=== PATIENT | male | born 1950 | race African-American/Black ===

== ENCOUNTER 2019-06-05 01:09 | Emergency (ER) | payer BC, SELFPAY ==
[2019-06-05 01:54] LABS: #Monocytes 0.8 thou/uL (0.11-0.59); #Neutrophils 10.4 thou/uL (1.40-6.50); %Basophils 0.3 % (0.0-1.0); %Eosinophils 0.2 % (0.0-10.0); %Lymphocytes 7.8 % (21.0-51.0); %Monocytes 6.5 % (0.0-10.0); %Neutrophils 85.1 % (42.0-75.0); Mean Corpuscular HGB CONC 32.5 g/dL (32.0-36.0); Mean Corpuscular Hemoglobin 28.5 pg (27.0-31.0); Mean Corpuscular Volume 87.5 fL (78.0-98.0); Mean Platelet Volume 9.3 fL (7.4-10.4); Platelet Count 149 thou/uL (130-400); RBC Distribution Width 13.4 % (11.5-14.5); Red Blood Cell (RBC) Count 4.91 mill/uL (4.70-6.10); White Blood Cell (WBC) Count 12.2 thou/uL (4.8-10.8)
[2019-06-05 02:19] LABS: Bacteria/HPF None Seen HPF (None Seen); Bilirubin Negative (Negative); Blood, Urine Negative (Negative); Clarity Clear (Clear); Glucose, Urine (Dipstick) 200 mg/dL (Negative); Leukocyte Negative Leu/uL (Negative); Nitrite Negative (Negative); Protein, Urine (Dipstick) 70 mg/dL (Neg-Trace); Squamous Epithelial 0-3 HPF (0-3); Urobilinogen Normal mg/dL (Less than 2); WBC/HPF 0-3 HPF (0-3)
[2019-06-05 02:20] LABS: ALT (SGPT) 24 U/L (8-55); AST (SGOT) 20 U/L (5-34); Acetaminophen Less than 6.0 mcg/mL (10.0-30.0); Albumin 4.4 g/dL (3.4-4.8); Alcohol Less than 10 mg/dL (Less than 10); Alkaline Phosphatase 113 U/L (40-110); Anion Gap 17 mmol/L (10-20); BUN (Urea Nitrogen) 27 mg/dL (8.4-25.7); Bilirubin, Total 0.3 mg/dL (0.2-1.2); CK (CPK) 125 U/L (30-200); Calc. Creatinine Clearance 0 mL/min (70-130); Calcium 10.1 mg/dL (7.8-10.44); Carbon Dioxide 26 mmol/L (23-31); Chloride 100 mmol/L (98-107); Estimated GFR-MDRD 52; Glucose 189 mg/dL (80-115); Protein, Total 7.4 g/dL (5.8-8.1); Salicylate Less than 8.0 mg/dL (15.0-30.0); Sodium 139 mmol/L (136-145)
[2019-06-05 02:30] LABS: Sperm/HPF None Seen HPF (None Seen)
[2019-06-05 02:31] LABS: Amphetamine Not Detected (NotDetected); Barbiturates Screen Not Detected (NotDetected); Benzodiazepine Screen Not Detected (NotDetected); Cocaine Metabolite Screen Detected (NotDetected); Medtox Control Line Valid? VALID (VALID); Medtox Reader # READER 4; Methadone Not Detected (NotDetected); Methamphetamine Not Detected (NotDetected); Opiate Screen Not Detected (NotDetected); Oxycodone Screen Not Detected (NotDetected); Phencyclidine (PCP) Not Detected (NotDetected); THC/Cannabinoid Screen Not Detected (NotDetected); Tricyclic Screen Not Detected (NotDetected)
--- NOTE | 2019-06-05 07:43 | CT ---
PRELIMINARY REPORT/[facility]/EMERGENCY AFTER HOURS PROCEDURE: PROCEDURE INFORMATION: Exam: CT Head Without Contrast Exam date and time: 06/05/2019 1:34 AM Clinical history: 69 years old, male; Patient HX: Took meds, drank beer, family reports "seizure like activity". Post ictal on EMS arrival. TECHNIQUE: Imaging protocol: Computed tomography of the head without contrast. COMPARISON: No relevant prior studies available. FINDINGS: Brain: Volume loss and chronic small vessel ischemic change. Multifocal encephalomalacia/gliosis. 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 No brain edema. No intracranial hemorrhage. Ventricles: Normal. No ventriculomegaly. Bones/joints: Unremarkable. No acute fracture. Sinuses: Visualized sinuses are unremarkable. No fluid levels. Mastoid air cells: Visualized mastoid air cells are well aerated. Soft tissues: Unremarkable. IMPRESSION: No acute brain findings. Thank you for allowing us to participate in the care of your patient. Dictated and Authenticated by: Miguel A Madrid MD 06/05/2019 1:46 AM Central Time ([place] & [place]) FINAL REPORT HEAD CT WITHOUT CONTRAST: HISTORY: Seizure-like activity. Previous intracranial hemorrhage. COMPARISON: 07/20/2011. FINDINGS: Hemorrhage: No intraparenchymal hemorrhage or extra-axial hematoma. Brain parenchyma: Remote insult with loss of cortical hernández-white matter differentiation the right fro ntal lobe. Remainder of the cerebrum demonstrates preservation of cortical hernández-white matter differentiation. Malacic changes in the left cerebellar hemisphere and left midbrain/kev due to carla te insult and sequelae of previous left cerebellar hemorrhage.Increasing white matter hypodensities which may represent progression of chronic small vessel ischemic change. Ventricular system: Ventricles and sulci are patent and symmetric. Calvarium: Intact. Sinuses and mastoid air cells: Adequate aeration. IMPRESSION: 1. This report is in agreement with the preliminary report by [facility]. 2. No acute intracranial process. 3. Further evaluation with brain MRI may be beneficial. Transcribed Date/Time: 06/05/2019 7:54 AM
--- NOTE | 2019-06-05 08:36 | RAD ---
PORTABLE CHEST 1 VIEW: DATE: 06/05/2019. TIME: 1:28 a.m. HISTORY: Seizure. FINDINGS/IMPRESSION: The heart size is normal. No lobar consolidation, pneumothoraces, jennifer pulmonary edema, or pleural effusions are seen. There are degenerative changes in the spine. POS: OFF
== END 2019-06-05 03:02 | disposition home or self-care (01) ==
LOC: ERS 01:09
DX: F14.10 Cocaine abuse, uncomplicated (principal); I10 Essential (primary) hypertension; Z86.73 Personal history of transient ischemic attack (TIA), and cerebral infarction without residual deficits
CPT/HCPCS: 36415; 70450; 71045; 80053; 80306; 80307; 81003; 81015; 82550; 83880; 85025; 93005

== ENCOUNTER 2022-11-22 03:07 | Inpatient (IN) | payer OTHER ==
[2022-11-22] MEDS ORDERED: Cefepime 2 GM VIAL ONE (04:00)
[2022-11-22] MEDS ORDERED: Vancomycin 1 GM/200 ML (FROZEN) BAG ONE (04:00)
[2022-11-22 04:18] LABS: #Eosinphils 0.1 thou/uL (0.0-0.7); #Lymphocytes 1.5 thou/uL (1.20-3.40); #Neutrophils 12.9 thou/uL (1.40-6.50); %Eosinophils 0.6 % (0.0-10.0); %Lymphocytes 9.7 % (21.0-51.0); %Monocytes 6.4 % (0.0-10.0); %Neutrophils 83.2 % (42.0-75.0); Hemoglobin 13.7 g/dL (14.0-18.0); Mean Corpuscular Hemoglobin 27.2 pg (27.0-31.0); Mean Corpuscular Volume 87.7 fl (78.0-98.0); Mean Platelet Volume 9.8 fL (7.4-10.4); Platelet Count 212 10x3/uL (130-400); RBC Distribution Width 13.3 % (11.5-14.5); Red Blood Cell (RBC) Count 5.05 mill/uL (4.70-6.10); White Blood Cell (WBC) Count 15.5 10x3/uL (4.8-10.8)
[2022-11-22 04:40] LABS: ALT (SGPT) 15 U/L (8-55); AST (SGOT) 14 U/L (5-34); Albumin 4.1 g/dL (3.4-4.8); Alkaline Phosphatase 117 U/L (40-110); Anion Gap 16 mmol/L (10-20); BUN (Urea Nitrogen) 45 mg/dL (8.4-25.7); Bilirubin, Total 0.2 mg/dL (0.2-1.2); Calc. Creatinine Clearance 0 mL/min (70-130); Carbon Dioxide 23 mmol/L (23-31); Chloride 106 mmol/L (98-107); Estimated GFR 31; Globulin 3.7 g/dL (2.4-3.5); Glucose 230 mg/dL (83-110); Potassium 4.3 mmol/L (3.5-5.1); Protein, Total 7.8 g/dL (5.8-8.1); Sodium 141 mmol/L (136-145)
[2022-11-22 05:02] LABS: CKMB 1.9 ng/mL (0-6.6)
[2022-11-22 05:43] LABS: SARS-CoV-2 NAA Rapid Test Not Detected (NotDetected)
[2022-11-22 05:47] LABS: Bilirubin Negative (Negative); Blood, Urine Negative (Negative); Clarity Clear (Clear); Glucose, Urine (Dipstick) Normal (Negative); Ketone, Urine Negative (Negative); Leukocyte Negative Leu/uL (Negative); Nitrite Negative (Negative); Protein, Urine (Dipstick) 20 mg/dL (Neg-Trace); Specific Gravity, Urine 1.019 (1.002-1.036); Urobilinogen Normal mg/dL (Less than 2)
[2022-11-22 06:59] LABS: Troponin I 0.035 ng/mL (< 0.028)
[2022-11-22 09:24] LABS: Lactic Acid 1.3 mmol/L (0.5-2.2)
[2022-11-22] MEDS ORDERED: Senokot S 8.6-50 MG TAB PO PRN (09:30)
[2022-11-22] MEDS ORDERED: Acetaminophen 325 MG TAB PO PRN (09:30)
[2022-11-22] MEDS ORDERED: Guaifenesin DM 100-10/5 ML UDCUP PO PRN (09:30)
[2022-11-22 09:34] LABS: Troponin I 0.041 ng/mL (< 0.028)
[2022-11-22] MEDS ORDERED: Furosemide 40 MG/4 ML VIAL SLOW IVP SCH (09:45)
[2022-11-22] MEDS ORDERED: Piperacillin/Tazobactam 3.375 GM in Sodium Chloride 0.9% 100 ML IVPB SCH ×2 (09:45→11:30)
[2022-11-22 11:32] LABS: Amphetamine Not Detected (NotDetected); Barbiturates Screen Not Detected (NotDetected); Benzodiazepine Screen Not Detected (NotDetected); Cocaine Metabolite Screen Detected (NotDetected); Methadone Not Detected (NotDetected); Methamphetamine Not Detected (NotDetected); Opiate Screen Not Detected (NotDetected); Oxycodone Screen Not Detected (NotDetected); Phencyclidine (PCP) Not Detected (NotDetected); THC/Cannabinoid Screen Not Detected (NotDetected); Tricyclic Screen Not Detected (NotDetected)
[2022-11-22] MEDS: metroNIDAZOLE 500 MG in Premix Bag 1 BAG IVPB SCH ×2 (14:09→21:41)
[2022-11-22] MEDS: Piperacillin/Tazobactam 3.375 GM in Sodium Chloride 0.9% 100 ML IVPB SCH (17:01)
[2022-11-22] MEDS ORDERED: Senokot S 8.6-50 MG TAB PER TUBE PRN (18:30)
[2022-11-22] MEDS ORDERED: Guaifenesin DM 100-10/5 ML UDCUP PER TUBE PRN (18:30)
[2022-11-22] MEDS: Simvastatin 5 MG TAB PER TUBE SCH (21:40)
[2022-11-22] MEDS: hydrALAZINE 25 MG TAB PER TUBE SCH (22:03)
[2022-11-22] MEDS: Acetaminophen 650 MG/20.3 ML UDCUP PER TUBE PRN (22:17)
[2022-11-23] MEDS: Piperacillin/Tazobactam 3.375 GM in Sodium Chloride 0.9% 100 ML IVPB SCH ×3 (02:55→17:10)
[2022-11-23] MEDS: metroNIDAZOLE 500 MG in Premix Bag 1 BAG IVPB SCH ×3 (05:08→21:55)
[2022-11-23 05:40] LABS: #Lymphocytes 0.6 thou/uL (1.20-3.40); #Monocytes 1.5 thou/uL (0.11-0.59); #Neutrophils 15.9 thou/uL (1.40-6.50); %Eosinophils 0.1 % (0.0-10.0); %Lymphocytes 3.5 % (21.0-51.0); %Monocytes 8.3 % (0.0-10.0); %Neutrophils 88.2 % (42.0-75.0); Hemoglobin 14.1 g/dL (14.0-18.0); Mean Corpuscular HGB CONC 30.7 g/dL (32.0-36.0); Mean Corpuscular Volume 87.9 fl (78.0-98.0); Mean Platelet Volume 9.8 fL (7.4-10.4); Platelet Count 220 10x3/uL (130-400); RBC Distribution Width 13.2 % (11.5-14.5); Red Blood Cell (RBC) Count 5.22 mill/uL (4.70-6.10)
[2022-11-23 06:23] LABS: Anion Gap 17 mmol/L (10-20); BUN (Urea Nitrogen) 54 mg/dL (8.4-25.7); Calc. Creatinine Clearance 34 mL/min (70-130); Calcium 9.6 mg/dL (7.8-10.44); Carbon Dioxide 22 mmol/L (23-31); Chloride 108 mmol/L (98-107); Estimated GFR 28; Glucose 202 mg/dL (83-110); Potassium 4.7 mmol/L (3.5-5.1); Sodium 142 mmol/L (136-145)
[2022-11-23] MEDS ORDERED: Losartan 25 MG TAB PER TUBE SCH (09:00)
[2022-11-23] MEDS: hydrALAZINE 25 MG TAB PER TUBE SCH ×3 (09:42→20:27)
[2022-11-23] MEDS: Aspirin Chewable 81 MG TAB PER TUBE SCH (09:43)
[2022-11-23] MEDS: Cholecalciferol 1,000 UNITS (25 MCG) TAB PER TUBE SCH (09:44)
[2022-11-23] MEDS: Amlodipine 10 MG TAB PER TUBE SCH (09:44)
[2022-11-23] MEDS ORDERED: Sodium Bicarbonate 50 MEQ in Sodium Chloride 0.45% 1,000 ML IV SCH (16:30)
[2022-11-23 17:18] LABS: Sodium, Urine Less than 20 mmol/L (Not Available); Urea Nitrogen, Random Urine 895 mg/dl
[2022-11-23 17:20] LABS: Creatinine, Urine 143.81 mg/dL (63-166); Microalbumin Urine 2.7 mg/dL (0.5-50.0); Microalbumin/Creat Ratio 18.8 mg/g (Less than 30)
[2022-11-23] MEDS: Simvastatin 5 MG TAB PER TUBE SCH (20:27)
[2022-11-23] MEDS: Acetaminophen 650 MG/20.3 ML UDCUP PER TUBE PRN (21:54)
[2022-11-24] MEDS: Piperacillin/Tazobactam 3.375 GM in Sodium Chloride 0.9% 100 ML IVPB SCH ×2 (03:09→11:20)
[2022-11-24] MEDS ORDERED: Dextrose 50% Abboject 50 ML SYRINGE SLOW IVP PRN (04:07)
[2022-11-24] MEDS ORDERED: Dextrose 5% in Water 1,000 ML IV PRN (04:07)
[2022-11-24 05:43] LABS: Hemoglobin 14.2 g/dL (14.0-18.0); Mean Corpuscular HGB CONC 32.7 g/dL (32.0-36.0); Mean Corpuscular Volume 85.7 fl (78.0-98.0); Mean Platelet Volume 9.7 fL (7.4-10.4); Platelet Count 220 10x3/uL (130-400); RBC Distribution Width 13.2 % (11.5-14.5); Red Blood Cell (RBC) Count 5.07 mill/uL (4.70-6.10); White Blood Cell (WBC) Count 21.6 10x3/uL (4.8-10.8)
[2022-11-24 06:00] LABS: Anion Gap 18 mmol/L (10-20); BUN (Urea Nitrogen) 74 mg/dL (8.4-25.7); Calc. Creatinine Clearance 29 mL/min (70-130); Carbon Dioxide 21 mmol/L (23-31); Chloride 107 mmol/L (98-107); Estimated GFR 24; Glucose 231 mg/dL (83-110); Potassium 4.3 mmol/L (3.5-5.1); Sodium 142 mmol/L (136-145)
[2022-11-24 06:15] LABS: Band 2 % (5-11); Large Platelets SLIGHT; Lymphocytes 4 % (21-51); MDiff Complete? YES; Monocytes 4 % (0-10); Neutrophil 90 % (42-75); Nucleated RBC (Manual Ct) 1 % (0); Platelet Morphology Comment Appears Adequate; Polychromasia SLIGHT = 2-3 cells (100X) (0-2/hpf)
[2022-11-24] MEDS: metroNIDAZOLE 500 MG in Premix Bag 1 BAG IVPB SCH ×2 (06:17→15:53)
[2022-11-24 09:22] LABS: Magnesium 2.2 mg/dL (1.6-2.6)
[2022-11-24] MEDS: Cholecalciferol 1,000 UNITS (25 MCG) TAB PER TUBE SCH (11:19)
[2022-11-24] MEDS: Aspirin Chewable 81 MG TAB PER TUBE SCH (11:19)
[2022-11-24] MEDS: Isosorbide Dinitrate 20 MG TAB PO SCH ×3 (11:19→21:37)
[2022-11-24] MEDS: hydrALAZINE 25 MG TAB PER TUBE SCH ×4 (11:19→21:36)
[2022-11-24] MEDS: Amlodipine 10 MG TAB PER TUBE SCH (11:20)
[2022-11-24] MEDS: Sodium Bicarbonate 50 MEQ in Sodium Chloride 0.45% 1,000 ML IV SCH ×2 (13:17→23:20)
[2022-11-24] MEDS ORDERED: Meropenem 500 MG in Sodium Chloride 0.9% 100 ML IVPB SCH (17:45)
[2022-11-24] MEDS ORDERED: Meropenem 1 GM in Sodium Chloride 0.9% 100 ML IVPB SCH (18:15)
[2022-11-24] MEDS: Acetaminophen 650 MG/20.3 ML UDCUP PER TUBE PRN (18:23)
[2022-11-24] MEDS: Linezolid 600 MG in Premix Bag 1 BAG IVPB SCH (21:35)
[2022-11-24] MEDS: Simvastatin 5 MG TAB PER TUBE SCH (21:37)
[2022-11-24] MEDS: Heparin 5,000 UNITS/ML VIAL SC SCH (21:37)
[2022-11-24] MEDS: HumaLOG 300 UNITS/3 ML VIAL SC PRN (21:49)
[2022-11-24 22:37] LABS: Base Excess (BEa) 1.5 mEq/L (-2.0 to +3.0); CO2 Tension 40.3 mmHg (35.0-45.0); Calcium, Ionized (arterial) 1.15 mmol/L (1.12-1.30); Carboxyhemoglobin (COHb) 1.3 gm% (0.0-3.0); Hematocrit-ABG 43 % (42.0-52.0); Hemoglobin (Hb) 14.6 g/dL (14.0-18.0); O2 Tension (PaO2), arterial 78.3 mmHg (> 70.0); Potassium - ABG Lab 4.06 mmol/L (3.70-5.30); pH, Arterial 7.427 (7.35-7.45)
[2022-11-24 22:43] LABS: ALV-art Gradient 299.125 mmHg (0-20); Puncture Site RRA
[2022-11-24] MEDS ORDERED: Lidocaine 1% (PF) 30 ML VIAL ONE (23:03)
[2022-11-25] MEDS ORDERED: Lidocaine 1% w/Epinephrine 1:100K 20 ML VIAL ONE
[2022-11-25 02:05] LABS: BF Color Yellow; Body Fluid Source Thoracentesis Fluid; Clarity Hazy (Clear); RBC Count-Automated (BF) 3559 /cu.mm; Tube # EDTA; WBC/Nucleated-Auto (BF) 2904 /cu.mm
[2022-11-25 02:07] LABS: BF Segmented Neutrophils 97 %; Cell Count Non Hematic 2 %; Lymphocytes 1 %
[2022-11-25] MEDS: Meropenem 500 MG in Sodium Chloride 0.9% 100 ML IVPB SCH ×2 (02:26→14:35)
[2022-11-25 03:59] LABS: Hemoglobin 12.8 g/dL (14.0-18.0); Mean Corpuscular HGB CONC 33.9 g/dL (32.0-36.0); Mean Corpuscular Hemoglobin 29.6 pg (27.0-31.0); Mean Corpuscular Volume 87.2 fl (78.0-98.0); Mean Platelet Volume 9.7 fL (7.4-10.4); Platelet Count 209 10x3/uL (130-400); RBC Distribution Width 13.2 % (11.5-14.5); Red Blood Cell (RBC) Count 4.33 mill/uL (4.70-6.10); White Blood Cell (WBC) Count 17.3 10x3/uL (4.8-10.8)
[2022-11-25 04:17] LABS: Albumin 2.9 g/dL (3.4-4.8); Anion Gap 14 mmol/L (10-20); BUN (Urea Nitrogen) 92 mg/dL (8.4-25.7); BUN/Creatinine Ratio 33.45; Calc. Creatinine Clearance 29 mL/min (70-130); Calcium 8.5 mg/dL (7.8-10.44); Carbon Dioxide 25 mmol/L (23-31); Chloride 110 mmol/L (98-107); Estimated GFR 24; Glucose 248 mg/dL (83-110); Phosphorus 3.6 mg/dL (2.3-4.7); Potassium 4.2 mmol/L (3.5-5.1); Sodium 145 mmol/L (136-145)
[2022-11-25] MEDS: HumaLOG 300 UNITS/3 ML VIAL SC PRN ×3 (04:18→17:17)
[2022-11-25 04:48] LABS: Band 8 % (5-11); Lymphocytes 2 % (21-51); MDiff Complete? YES; Monocytes 8 % (0-10); Neutrophil 82 % (42-75)
[2022-11-25] MEDS: Linezolid 600 MG in Premix Bag 1 BAG IVPB SCH ×2 (09:41→23:02)
[2022-11-25] MEDS: hydrALAZINE 25 MG TAB PER TUBE SCH ×3 (09:42→21:18)
[2022-11-25] MEDS: Cholecalciferol 1,000 UNITS (25 MCG) TAB PER TUBE SCH (09:42)
[2022-11-25] MEDS: Isosorbide Dinitrate 20 MG TAB PO SCH ×3 (09:43→21:19)
[2022-11-25] MEDS: Amlodipine 10 MG TAB PER TUBE SCH (09:43)
[2022-11-25] MEDS: Aspirin Chewable 81 MG TAB PER TUBE SCH (09:43)
[2022-11-25] MEDS: Heparin 5,000 UNITS/ML VIAL SC SCH ×2 (09:44→21:19)
[2022-11-25] MEDS: Sodium Bicarbonate 50 MEQ in Sodium Chloride 0.45% 1,000 ML IV SCH ×3 (10:00→21:59)
[2022-11-25] MEDS: STERILE WATER I-PLEURAL SCH (19:40)
[2022-11-25] MEDS: DORNASE ALFA I-PLEURAL SCH (19:40)
[2022-11-25] MEDS: SODIUM CHLORIDE 0.9% FS SCH (20:24)
[2022-11-25] MEDS: ACTIVASE FS SCH (20:24)
[2022-11-25] MEDS ORDERED: Acetaminophen/Codeine 30-300mg Tablet PO PRN (21:17)
[2022-11-25] MEDS: Simvastatin 5 MG TAB PER TUBE SCH (21:19)
[2022-11-26] MEDS: HumaLOG 300 UNITS/3 ML VIAL SC PRN ×3 (00:05→18:03)
[2022-11-26] MEDS: Meropenem 500 MG in Sodium Chloride 0.9% 100 ML IVPB SCH (02:41)
[2022-11-26] MEDS: DORNASE ALFA I-PLEURAL SCH (07:15)
[2022-11-26] MEDS: STERILE WATER I-PLEURAL SCH (07:15)
[2022-11-26] MEDS: ACTIVASE FS SCH (07:16)
[2022-11-26] MEDS: SODIUM CHLORIDE 0.9% FS SCH (07:16)
[2022-11-26 08:25] LABS: Albumin 2.9 g/dL (3.4-4.8); Anion Gap 14 mmol/L (10-20); BUN (Urea Nitrogen) 73 mg/dL (8.4-25.7); BUN/Creatinine Ratio 39.04; Calc. Creatinine Clearance 42 mL/min (70-130); Calcium 9.2 mg/dL (7.8-10.44); Carbon Dioxide 28 mmol/L (23-31); Chloride 110 mmol/L (98-107); Estimated GFR 38; Glucose 330 mg/dL (83-110); Phosphorus 2.4 mg/dL (2.3-4.7); Potassium 4.5 mmol/L (3.5-5.1); Sodium 147 mmol/L (136-145)
[2022-11-26] MEDS: hydrALAZINE 25 MG TAB PER TUBE SCH ×3 (09:31→21:22)
[2022-11-26] MEDS: Amlodipine 10 MG TAB PER TUBE SCH (09:32)
[2022-11-26] MEDS: Aspirin Chewable 81 MG TAB PER TUBE SCH (09:32)
[2022-11-26] MEDS: Heparin 5,000 UNITS/ML VIAL SC SCH ×2 (09:32→21:23)
[2022-11-26] MEDS: Cholecalciferol 1,000 UNITS (25 MCG) TAB PER TUBE SCH (09:32)
[2022-11-26] MEDS: Isosorbide Dinitrate 20 MG TAB PO SCH ×3 (09:32→21:22)
[2022-11-26] MEDS: Linezolid 600 MG in Premix Bag 1 BAG IVPB SCH ×2 (09:50→21:10)
[2022-11-26] MEDS ORDERED: Insulin Glargine 30 UNITS/0.3 ML VIAL SC SCH (10:00)
[2022-11-26] MEDS: Meropenem 1 GM in Sodium Chloride 0.9% 100 ML IVPB SCH (14:07)
[2022-11-26] MEDS ORDERED: Sodium Bicarbonate 50 MEQ in Sodium Chloride 0.45% 1,000 ML IV SCH (20:30)
[2022-11-26] MEDS: Simvastatin 5 MG TAB PER TUBE SCH (21:22)
[2022-11-27] MEDS: Meropenem 1 GM in Sodium Chloride 0.9% 100 ML IVPB SCH ×2 (02:25→14:10)
[2022-11-27] MEDS: HumaLOG 300 UNITS/3 ML VIAL SC PRN ×2 (03:57→16:43)
[2022-11-27 04:29] LABS: Albumin 2.7 g/dL (3.4-4.8); Anion Gap 12 mmol/L (10-20); BUN (Urea Nitrogen) 64 mg/dL (8.4-25.7); BUN/Creatinine Ratio 39.26; Calc. Creatinine Clearance 48 mL/min (70-130); Calcium 8.7 mg/dL (7.8-10.44); Carbon Dioxide 30 mmol/L (23-31); Chloride 108 mmol/L (98-107); Estimated GFR 44; Glucose 301 mg/dL (83-110); Phosphorus 3.1 mg/dL (2.3-4.7); Potassium 4.4 mmol/L (3.5-5.1); Sodium 146 mmol/L (136-145)
[2022-11-27] MEDS ORDERED: Fentanyl 250 MCG/5 ML VIAL ONE (06:34)
[2022-11-27] MEDS: Amlodipine 10 MG TAB PER TUBE SCH (07:42)
[2022-11-27] MEDS: Aspirin Chewable 81 MG TAB PER TUBE SCH (07:42)
[2022-11-27] MEDS: hydrALAZINE 25 MG TAB PER TUBE SCH ×3 (07:43→21:49)
[2022-11-27] MEDS: Heparin 5,000 UNITS/ML VIAL SC SCH ×2 (07:43→21:56)
[2022-11-27] MEDS: Isosorbide Dinitrate 20 MG TAB PO SCH ×3 (07:43→22:00)
[2022-11-27] MEDS: Cholecalciferol 1,000 UNITS (25 MCG) TAB PER TUBE SCH (07:43)
[2022-11-27] MEDS: Insulin Glargine 30 UNITS/0.3 ML VIAL SC SCH (07:43)
[2022-11-27] MEDS: Linezolid 600 MG in Premix Bag 1 BAG IVPB SCH ×2 (07:49→21:52)
[2022-11-27] MEDS ORDERED: Ondansetron HCl/PF 4 MG/2 ML Vial IVP PRN (08:38)
[2022-11-27] MEDS ORDERED: Promethazine HCl 25 MG/ML VIAL IM PRN (08:38)
[2022-11-27] MEDS ORDERED: Bupivacaine HCl 0.5%/Epinephrine 1:200,000/PF 30 ml Vial ONE (09:08)
[2022-11-27] MEDS ORDERED: PROPOFOL 200 MG/20 ML VIAL ONE (09:19)
[2022-11-27] MEDS ORDERED: Lidocaine 1% PF 5 ML VIAL ONE (09:19)
[2022-11-27] MEDS ORDERED: Rocuronium Bromide 10 MG/ML (10ML VIAL) ONE (09:19)
[2022-11-27] MEDS ORDERED: Ventilator Sedation Protocol 1 EACH FS ONE (11:10)
[2022-11-27] MEDS ORDERED: Fentanyl CADD 100 ML ONE (11:48)
[2022-11-27] MEDS: Fentanyl CADD 100 ML IV SCH (11:53)
[2022-11-27] MEDS: Propofol 1,000 MG/100 ML VIAL IV PRN ×3 (11:54→23:53)
[2022-11-27] MEDS ORDERED: Lorazepam 2 MG/ML VIAL SLOW IVP PRN (12:00)
[2022-11-27] MEDS ORDERED: DISCONTINUE PREVIOUS NARCOTIC PAIN MEDICATIONS AND BENZODIAZEPINES FS SCH (12:00)
[2022-11-27] MEDS ORDERED: Morphine 2 MG/ML VIAL SLOW IVP PRN (12:00)
[2022-11-27] MEDS ORDERED: Propofol BOLUS 1,000 MG/100 ML VIAL IV PRN (12:00)
[2022-11-27] MEDS ORDERED: Fentanyl BOLUS 250 ML IVPB PRN (12:00)
[2022-11-27] MEDS ORDERED: Ventilator Sedation Protocol 1 EACH FS SCH (12:30)
[2022-11-27 12:31] LABS: Anion Gap 13 mmol/L (10-20); BUN (Urea Nitrogen) 59 mg/dL (8.4-25.7); Calc. Creatinine Clearance 50 mL/min (70-130); Calcium 8.6 mg/dL (7.8-10.44); Carbon Dioxide 31 mmol/L (23-31); Chloride 109 mmol/L (98-107); Estimated GFR 46; Glucose 325 mg/dL (83-110); Potassium 4.8 mmol/L (3.5-5.1); Sodium 148 mmol/L (136-145)
[2022-11-27] MEDS ORDERED: Dextrose 5 %-0.45 % NaCl 1,000 ML IV SCH (12:45)
[2022-11-27] MEDS ORDERED: Insulin Glargine 30 UNITS/0.3 ML VIAL SC SCH (12:45)
[2022-11-27 15:24] LABS: Actual Bicarbonate (HCO3v) 32.3 mEq/L (22-28); Base Excess 8.4 mEq/L (-2.0 to +3.0); Calcium, Ionized (venous) 1.04 mmol/L (1.16-1.32); Chloride (VBG) 109 mmol/L (98-106); Hematocrit-VBG 36 % (42.0-52.0); Hemoglobin (Hb) 12.2 g/dL (12.6-17.4); Potassium (VBG) 4.41 mmol/L (3.70-5.30); Sodium 145.2 mmol/L (133-146); pH (venous) 7.505 (7.32-7.43)
[2022-11-27 15:30] LABS: #Eosinphils 0.2 thou/uL (0.0-0.7); #Lymphocytes 0.9 thou/uL (1.20-3.40); #Monocytes 0.9 thou/uL (0.11-0.59); #Neutrophils 9.7 thou/uL (1.40-6.50); %Basophils 0.2 % (0.0-1.0); %Eosinophils 1.5 % (0.0-10.0); %Lymphocytes 7.4 % (21.0-51.0); %Monocytes 7.5 % (0.0-10.0); %Neutrophils 83.4 % (42.0-75.0); Hemoglobin 11.4 g/dL (14.0-18.0); Mean Corpuscular HGB CONC 31.9 g/dL (32.0-36.0); Mean Corpuscular Hemoglobin 28.1 pg (27.0-31.0); Mean Corpuscular Volume 88.1 fl (78.0-98.0); Mean Platelet Volume 8.7 fL (7.4-10.4); Platelet Count 226 10x3/uL (130-400); RBC Distribution Width 13.1 % (11.5-14.5); Red Blood Cell (RBC) Count 4.05 mill/uL (4.70-6.10); White Blood Cell (WBC) Count 11.7 10x3/uL (4.8-10.8)
[2022-11-27] MEDS: Simvastatin 5 MG TAB PER TUBE SCH (21:54)
[2022-11-27] MEDS ORDERED: Albumin 25% 25 GM/100 ML BOT IVPB SCH (22:00)
[2022-11-28] MEDS: Fentanyl CADD 100 ML IV SCH ×2 (00:52→19:45)
[2022-11-28] MEDS: Meropenem 1 GM in Sodium Chloride 0.9% 100 ML IVPB SCH ×2 (02:38→14:46)
[2022-11-28] MEDS: HumaLOG 300 UNITS/3 ML VIAL SC PRN ×4 (04:00→21:14)
[2022-11-28 04:15] LABS: Hemoglobin 10.1 g/dL (14.0-18.0); Mean Corpuscular HGB CONC 34.6 g/dL (32.0-36.0); Mean Corpuscular Hemoglobin 29.4 pg (27.0-31.0); Mean Corpuscular Volume 85.2 fl (78.0-98.0); Mean Platelet Volume 9.4 fL (7.4-10.4); Platelet Count 216 10x3/uL (130-400); RBC Distribution Width 13.2 % (11.5-14.5); Red Blood Cell (RBC) Count 3.43 mill/uL (4.70-6.10)
[2022-11-28 04:23] LABS: Anion Gap 15 mmol/L (10-20); BUN (Urea Nitrogen) 72 mg/dL (8.4-25.7); Calc. Creatinine Clearance 32 mL/min (70-130); Calcium 7.9 mg/dL (7.8-10.44); Carbon Dioxide 28 mmol/L (23-31); Chloride 108 mmol/L (98-107); Estimated GFR 27; Glucose 238 mg/dL (83-110); Potassium 4.7 mmol/L (3.5-5.1); Sodium 146 mmol/L (136-145)
[2022-11-28 05:06] LABS: Eosinophils 5 % (0-10); Lymphocytes 11 % (21-51); MDiff Complete? YES; Monocytes 4 % (0-10); Neutrophil 79 % (42-75); Platelet Morphology Comment Appears Adequate; Polychromasia SLIGHT = 2-3 cells (100X) (0-2/hpf); White Blood Cell (WBC) Count 10.5 10x3/uL (4.8-10.8)
[2022-11-28] MEDS: Propofol 1,000 MG/100 ML VIAL IV PRN ×2 (07:41→18:14)
[2022-11-28] MEDS ORDERED: Albumin 25% 25 GM/100 ML BOT IVPB SCH (08:30)
[2022-11-28] MEDS: Dextrose 5 %-0.45 % NaCl 1,000 ML IV SCH ×2 (08:48→18:53)
[2022-11-28] MEDS: Cholecalciferol 1,000 UNITS (25 MCG) TAB PER TUBE SCH (09:10)
[2022-11-28] MEDS: Aspirin Chewable 81 MG TAB PER TUBE SCH (09:10)
[2022-11-28] MEDS: Pantoprazole 40 MG VIAL IVP SCH (09:11)
[2022-11-28] MEDS: Insulin Glargine 30 UNITS/0.3 ML VIAL SC SCH (09:12)
[2022-11-28] MEDS: Heparin 5,000 UNITS/ML VIAL SC SCH ×2 (09:46→21:13)
[2022-11-28] MEDS: Linezolid 600 MG in Premix Bag 1 BAG IVPB SCH ×2 (09:54→21:14)
[2022-11-28] MEDS: Simvastatin 5 MG TAB PER TUBE SCH (21:15)
[2022-11-29] MEDS: Meropenem 1 GM in Sodium Chloride 0.9% 100 ML IVPB SCH (02:48)
[2022-11-29] MEDS: Dextrose 5 %-0.45 % NaCl 1,000 ML IV SCH (04:59)
[2022-11-29] MEDS: Propofol 1,000 MG/100 ML VIAL IV PRN (05:46)
[2022-11-29 08:34] LABS: #Eosinphils 0.8 thou/uL (0.0-0.7); #Lymphocytes 1.3 thou/uL (1.20-3.40); #Neutrophils 11.4 thou/uL (1.40-6.50); %Basophils 0.3 % (0.0-1.0); %Eosinophils 5.3 % (0.0-10.0); %Monocytes 6.6 % (0.0-10.0); %Neutrophils 78.9 % (42.0-75.0); Hemoglobin 9.4 g/dL (14.0-18.0); Mean Corpuscular HGB CONC 32.9 g/dL (32.0-36.0); Mean Corpuscular Hemoglobin 28.4 pg (27.0-31.0); Mean Corpuscular Volume 86.4 fl (78.0-98.0); Mean Platelet Volume 8.9 fL (7.4-10.4); Platelet Count 225 10x3/uL (130-400); RBC Distribution Width 13.2 % (11.5-14.5); White Blood Cell (WBC) Count 14.4 10x3/uL (4.8-10.8)
[2022-11-29 08:54] LABS: Albumin 2.7 g/dL (3.4-4.8); Anion Gap 15 mmol/L (10-20); BUN (Urea Nitrogen) 60 mg/dL (8.4-25.7); BUN/Creatinine Ratio 28.04; Calc. Creatinine Clearance 40 mL/min (70-130); Calcium 8.2 mg/dL (7.8-10.44); Carbon Dioxide 26 mmol/L (23-31); Chloride 109 mmol/L (98-107); Estimated GFR 32; Glucose 216 mg/dL (83-110); Phosphorus 2.7 mg/dL (2.3-4.7); Potassium 3.9 mmol/L (3.5-5.1); Sodium 146 mmol/L (136-145)
[2022-11-29] MEDS: Fentanyl CADD 100 ML IV SCH (09:35)
[2022-11-29] MEDS ORDERED: Sodium Chloride 0.45% 1,000 ML IV SCH (10:00)
[2022-11-29] MEDS: Aspirin Chewable 81 MG TAB PER TUBE SCH (10:23)
[2022-11-29] MEDS: Amoxicillin/Potassium Clav 875 MG TAB PER TUBE SCH ×2 (10:23→21:19)
[2022-11-29] MEDS: Pantoprazole 40 MG VIAL IVP SCH (10:23)
[2022-11-29] MEDS: Insulin Glargine 30 UNITS/0.3 ML VIAL SC SCH (10:23)
[2022-11-29] MEDS: Cholecalciferol 1,000 UNITS (25 MCG) TAB PER TUBE SCH (10:23)
[2022-11-29] MEDS: Heparin 5,000 UNITS/ML VIAL SC SCH ×2 (10:24→21:19)
[2022-11-29] MEDS: HumaLOG 300 UNITS/3 ML VIAL SC PRN (12:04)
[2022-11-29] MEDS ORDERED: Furosemide 40 MG/4 ML VIAL IVP SCH (15:58)
[2022-11-29] MEDS: Sodium Chloride 0.45% 1,000 ML IV SCH (16:58)
[2022-11-29] MEDS: Simvastatin 5 MG TAB PER TUBE SCH (21:19)
[2022-11-30] MEDS: Sodium Chloride 0.45% 1,000 ML IV SCH ×3 (02:26→21:08)
[2022-11-30 04:15] LABS: Albumin 2.8 g/dL (3.4-4.8); Anion Gap 14 mmol/L (10-20); BUN (Urea Nitrogen) 51 mg/dL (8.4-25.7); BUN/Creatinine Ratio 25.76; Calc. Creatinine Clearance 43 mL/min (70-130); Carbon Dioxide 30 mmol/L (23-31); Chloride 110 mmol/L (98-107); Estimated GFR 35; Glucose 221 mg/dL (83-110); Phosphorus 3.5 mg/dL (2.3-4.7); Potassium 4.1 mmol/L (3.5-5.1); Sodium 150 mmol/L (136-145)
[2022-11-30] MEDS ORDERED: Fentanyl CADD 100 ML ONE (06:19)
[2022-11-30] MEDS: Fentanyl CADD 100 ML IV SCH (06:22)
[2022-11-30] MEDS: Amlodipine 10 MG TAB PER TUBE SCH (08:31)
[2022-11-30] MEDS: Cholecalciferol 1,000 UNITS (25 MCG) TAB PER TUBE SCH (08:31)
[2022-11-30] MEDS: Aspirin Chewable 81 MG TAB PER TUBE SCH (08:31)
[2022-11-30] MEDS: Amoxicillin/Potassium Clav 875 MG TAB PER TUBE SCH ×2 (08:32→21:07)
[2022-11-30] MEDS: Pantoprazole 40 MG VIAL IVP SCH (08:32)
[2022-11-30] MEDS: Acetaminophen 650 MG/20.3 ML UDCUP PER TUBE PRN ×2 (08:32→16:20)
[2022-11-30] MEDS: Insulin Glargine 30 UNITS/0.3 ML VIAL SC SCH (08:35)
[2022-11-30] MEDS: Heparin 5,000 UNITS/ML VIAL SC SCH ×2 (08:37→21:07)
[2022-11-30] MEDS: HumaLOG 300 UNITS/3 ML VIAL SC PRN ×3 (08:41→21:09)
[2022-11-30] MEDS: Scopolamine 1.5 mg/72 hour Patch TD SCH (11:41)
[2022-11-30 12:15] LABS: Fungus Stain Final report (.)
[2022-11-30 15:35] LABS: Anion Gap 14 mmol/L (10-20); BUN (Urea Nitrogen) 49 mg/dL (8.4-25.7); Calc. Creatinine Clearance 44 mL/min (70-130); Calcium 8.9 mg/dL (7.8-10.44); Carbon Dioxide 27 mmol/L (23-31); Chloride 113 mmol/L (98-107); Estimated GFR 36; Glucose 252 mg/dL (83-110); Potassium 4.8 mmol/L (3.5-5.1); Sodium 149 mmol/L (136-145)
[2022-11-30] MEDS: Simvastatin 5 MG TAB PER TUBE SCH (21:08)
[2022-12-01] MEDS: HumaLOG 300 UNITS/3 ML VIAL SC PRN ×4 (04:22→21:11)
[2022-12-01] MEDS: Fentanyl CADD 100 ML IV SCH (08:19)
[2022-12-01] MEDS: Insulin Glargine 30 UNITS/0.3 ML VIAL SC SCH ×2 (08:29→21:09)
[2022-12-01] MEDS: Heparin 5,000 UNITS/ML VIAL SC SCH ×2 (08:30→21:09)
[2022-12-01] MEDS: Amlodipine 10 MG TAB PER TUBE SCH (08:30)
[2022-12-01] MEDS: Amoxicillin/Potassium Clav 875 MG TAB PER TUBE SCH ×2 (08:30→21:10)
[2022-12-01] MEDS: Pantoprazole 40 MG VIAL IVP SCH (08:30)
[2022-12-01] MEDS: Aspirin Chewable 81 MG TAB PER TUBE SCH (08:31)
[2022-12-01] MEDS: Cholecalciferol 1,000 UNITS (25 MCG) TAB PER TUBE SCH (08:33)
[2022-12-01] MEDS: Sodium Chloride 0.45% 1,000 ML IV SCH (08:38)
[2022-12-01 08:50] LABS: #Eosinphils 0.4 thou/uL (0.0-0.7); #Monocytes 0.9 thou/uL (0.11-0.59); #Neutrophils 9.5 thou/uL (1.40-6.50); %Basophils 0.3 % (0.0-1.0); %Eosinophils 3.6 % (0.0-10.0); %Lymphocytes 8.6 % (21.0-51.0); %Monocytes 7.4 % (0.0-10.0); %Neutrophils 80.2 % (42.0-75.0); Hemoglobin 9.5 g/dL (14.0-18.0); Mean Corpuscular HGB CONC 30.7 g/dL (32.0-36.0); Mean Corpuscular Hemoglobin 27.1 pg (27.0-31.0); Mean Corpuscular Volume 88.3 fl (78.0-98.0); Mean Platelet Volume 9.3 fL (7.4-10.4); Platelet Count 270 10x3/uL (130-400); RBC Distribution Width 13.3 % (11.5-14.5); White Blood Cell (WBC) Count 11.9 10x3/uL (4.8-10.8)
[2022-12-01 09:02] LABS: Anion Gap 16 mmol/L (10-20); BUN (Urea Nitrogen) 50 mg/dL (8.4-25.7); Calc. Creatinine Clearance 46 mL/min (70-130); Calcium 8.7 mg/dL (7.8-10.44); Carbon Dioxide 23 mmol/L (23-31); Chloride 112 mmol/L (98-107); Estimated GFR 38; Glucose 269 mg/dL (83-110); Potassium 4.9 mmol/L (3.5-5.1); Sodium 146 mmol/L (136-145)
[2022-12-01] MEDS ORDERED: hydrALAZINE 20 MG/ML VIAL SLOW IVP PRN (11:37)
[2022-12-01] MEDS ORDERED: Docusate Sodium 100 MG/10 ML UDCUP PO SCH (12:00)
[2022-12-01] MEDS ORDERED: Polyethylene Glycol 3350 17 GM Packet PO SCH (12:00)
[2022-12-01] MEDS: Docusate Sodium 100 MG/10 ML UDCUP PO SCH (21:10)
[2022-12-01] MEDS: Simvastatin 5 MG TAB PER TUBE SCH (21:10)
[2022-12-02] MEDS: HumaLOG 300 UNITS/3 ML VIAL SC PRN (03:55)
[2022-12-02 04:28] LABS: #Eosinphils 0.4 thou/uL (0.0-0.7); #Lymphocytes 0.8 thou/uL (1.20-3.40); #Neutrophils 8.6 thou/uL (1.40-6.50); %Basophils 0.4 % (0.0-1.0); %Lymphocytes 7.4 % (21.0-51.0); %Monocytes 9.4 % (0.0-10.0); %Neutrophils 78.8 % (42.0-75.0); Hemoglobin 9.3 g/dL (14.0-18.0); Mean Corpuscular HGB CONC 31.3 g/dL (32.0-36.0); Mean Corpuscular Hemoglobin 27.6 pg (27.0-31.0); Mean Corpuscular Volume 88.4 fl (78.0-98.0); Mean Platelet Volume 8.3 fL (7.4-10.4); Platelet Count 301 10x3/uL (130-400); RBC Distribution Width 12.9 % (11.5-14.5); Red Blood Cell (RBC) Count 3.35 mill/uL (4.70-6.10)
[2022-12-02 04:42] LABS: Anion Gap 13 mmol/L (10-20); BUN (Urea Nitrogen) 38 mg/dL (8.4-25.7); Calc. Creatinine Clearance 54 mL/min (70-130); Calcium 8.9 mg/dL (7.8-10.44); Carbon Dioxide 30 mmol/L (23-31); Chloride 112 mmol/L (98-107); Estimated GFR 46; Glucose 177 mg/dL (83-110); Potassium 4.8 mmol/L (3.5-5.1); Sodium 150 mmol/L (136-145)
[2022-12-02] MEDS: Polyethylene Glycol 3350 17 GM Packet PO SCH ×2 (08:05→08:37)
[2022-12-02] MEDS: Aspirin Chewable 81 MG TAB PER TUBE SCH ×2 (08:06→08:37)
[2022-12-02] MEDS: Amlodipine 10 MG TAB PER TUBE SCH ×2 (08:06→08:36)
[2022-12-02] MEDS: Cholecalciferol 1,000 UNITS (25 MCG) TAB PER TUBE SCH ×2 (08:06→08:36)
[2022-12-02] MEDS: Heparin 5,000 UNITS/ML VIAL SC SCH ×2 (08:07→20:42)
[2022-12-02] MEDS: Insulin Glargine 30 UNITS/0.3 ML VIAL SC SCH ×2 (08:07→20:41)
[2022-12-02] MEDS: Pantoprazole 40 MG VIAL IVP SCH (08:08)
[2022-12-02] MEDS: Amoxicillin/Potassium Clav 875 MG TAB PER TUBE SCH ×2 (08:36→20:42)
[2022-12-02] MEDS: hydrALAZINE 25 MG TAB PER TUBE SCH ×3 (08:42→20:42)
[2022-12-02] MEDS: Isosorbide Dinitrate 20 MG TAB PO SCH ×3 (08:42→20:41)
[2022-12-02] MEDS: Docusate Sodium 100 MG/10 ML UDCUP PO SCH ×2 (09:19→20:42)
[2022-12-02] MEDS ORDERED: Metoclopramide HCl 10 MG/2 ML VIAL IVP PRN (10:33)
[2022-12-02] MEDS: Sodium Chloride 0.45% 1,000 ML IV SCH ×2 (11:27→20:42)
[2022-12-02] MEDS: Ondansetron PF 4 MG/2 ML Vial IVP PRN (11:30)
[2022-12-02] MEDS: Simvastatin 5 MG TAB PER TUBE SCH (20:42)
[2022-12-03] MEDS: Sodium Chloride 0.45% 1,000 ML IV SCH ×2 (02:53→14:55)
[2022-12-03 07:00] LABS: #Eosinphils 0.5 thou/uL (0.0-0.7); #Lymphocytes 1.2 thou/uL (1.20-3.40); #Monocytes 0.8 thou/uL (0.11-0.59); #Neutrophils 6.2 thou/uL (1.40-6.50); %Basophils 0.5 % (0.0-1.0); %Eosinophils 5.4 % (0.0-10.0); %Lymphocytes 13.9 % (21.0-51.0); %Monocytes 8.8 % (0.0-10.0); %Neutrophils 71.4 % (42.0-75.0); Hemoglobin 9.9 g/dL (14.0-18.0); Mean Corpuscular HGB CONC 32.6 g/dL (32.0-36.0); Mean Corpuscular Hemoglobin 28.7 pg (27.0-31.0); Mean Corpuscular Volume 88.2 fl (78.0-98.0); Mean Platelet Volume 8.5 fL (7.4-10.4); Platelet Count 290 10x3/uL (130-400); Red Blood Cell (RBC) Count 3.45 mill/uL (4.70-6.10); White Blood Cell (WBC) Count 8.7 10x3/uL (4.8-10.8)
[2022-12-03 07:16] LABS: Anion Gap 13 mmol/L (10-20); BUN (Urea Nitrogen) 32 mg/dL (8.4-25.7); Calc. Creatinine Clearance 58 mL/min (70-130); Calcium 9.3 mg/dL (7.8-10.44); Carbon Dioxide 27 mmol/L (23-31); Chloride 112 mmol/L (98-107); Estimated GFR 50; Glucose 113 mg/dL (83-110); Potassium 4.3 mmol/L (3.5-5.1); Sodium 148 mmol/L (136-145)
[2022-12-03] MEDS: Amoxicillin/Potassium Clav 875 MG TAB PER TUBE SCH ×2 (08:34→09:32)
[2022-12-03] MEDS: Ondansetron PF 4 MG/2 ML Vial IVP PRN (08:34)
[2022-12-03] MEDS: Insulin Glargine 30 UNITS/0.3 ML VIAL SC SCH ×2 (08:34→21:21)
[2022-12-03] MEDS: Heparin 5,000 UNITS/ML VIAL SC SCH ×2 (08:34→21:23)
[2022-12-03] MEDS: Docusate Sodium 100 MG/10 ML UDCUP PO SCH ×3 (08:35→21:23)
[2022-12-03] MEDS: Pantoprazole 40 MG VIAL IVP SCH (08:35)
[2022-12-03] MEDS: Isosorbide Dinitrate 20 MG TAB PO SCH ×3 (08:35→21:21)
[2022-12-03] MEDS: hydrALAZINE 25 MG TAB PER TUBE SCH ×3 (08:35→21:20)
[2022-12-03] MEDS: Scopolamine 1.5 mg/72 hour Patch TD SCH (13:00)
[2022-12-03] MEDS: Metoclopramide HCl 10 MG/2 ML VIAL IVP SCH ×2 (13:01→18:04)
[2022-12-03 18:32] LABS: Anion Gap 12 mmol/L (10-20); BUN (Urea Nitrogen) 30 mg/dL (8.4-25.7); Calc. Creatinine Clearance 60 mL/min (70-130); Calcium 9.1 mg/dL (7.8-10.44); Carbon Dioxide 29 mmol/L (23-31); Chloride 110 mmol/L (98-107); Estimated GFR 53; Glucose 162 mg/dL (83-110); Potassium 4.2 mmol/L (3.5-5.1); Sodium 147 mmol/L (136-145)
[2022-12-03] MEDS: Simvastatin 5 MG TAB PER TUBE SCH (21:21)
[2022-12-04] MEDS: Metoclopramide HCl 10 MG/2 ML VIAL IVP SCH ×5 (00:28→23:45)
[2022-12-04] MEDS: Sodium Chloride 0.45% 1,000 ML IV SCH ×2 (02:25→12:40)
[2022-12-04 06:48] LABS: #Eosinphils 0.3 thou/uL (0.0-0.7); #Lymphocytes 1.1 thou/uL (1.20-3.40); #Monocytes 0.7 thou/uL (0.11-0.59); #Neutrophils 6.2 thou/uL (1.40-6.50); %Basophils 0.3 % (0.0-1.0); %Eosinophils 3.8 % (0.0-10.0); %Lymphocytes 13.3 % (21.0-51.0); %Monocytes 8.8 % (0.0-10.0); %Neutrophils 73.8 % (42.0-75.0); Hemoglobin 9.5 g/dL (14.0-18.0); Mean Corpuscular HGB CONC 31.8 g/dL (32.0-36.0); Mean Corpuscular Hemoglobin 27.8 pg (27.0-31.0); Mean Corpuscular Volume 87.4 fl (78.0-98.0); Mean Platelet Volume 8.5 fL (7.4-10.4); Platelet Count 297 10x3/uL (130-400); RBC Distribution Width 13.1 % (11.5-14.5); Red Blood Cell (RBC) Count 3.42 mill/uL (4.70-6.10); White Blood Cell (WBC) Count 8.4 10x3/uL (4.8-10.8)
[2022-12-04 07:05] LABS: Anion Gap 13 mmol/L (10-20); BUN (Urea Nitrogen) 30 mg/dL (8.4-25.7); Calc. Creatinine Clearance 59 mL/min (70-130); Carbon Dioxide 28 mmol/L (23-31); Chloride 110 mmol/L (98-107); Estimated GFR 51; Glucose 128 mg/dL (83-110); Potassium 4.1 mmol/L (3.5-5.1); Sodium 147 mmol/L (136-145)
[2022-12-04] MEDS: Cholecalciferol 1,000 UNITS (25 MCG) TAB PER TUBE SCH (09:55)
[2022-12-04] MEDS: Heparin 5,000 UNITS/ML VIAL SC SCH ×2 (09:55→21:40)
[2022-12-04] MEDS: Isosorbide Dinitrate 20 MG TAB PO SCH ×3 (09:55→21:41)
[2022-12-04] MEDS: Amlodipine 10 MG TAB PER TUBE SCH (09:55)
[2022-12-04] MEDS: hydrALAZINE 25 MG TAB PER TUBE SCH ×3 (09:56→21:40)
[2022-12-04] MEDS: Polyethylene Glycol 3350 17 GM Packet PO SCH (09:56)
[2022-12-04] MEDS: Docusate Sodium 100 MG/10 ML UDCUP PO SCH ×2 (09:56→21:25)
[2022-12-04] MEDS: Pantoprazole 40 MG VIAL IVP SCH (09:56)
[2022-12-04] MEDS: Insulin Glargine 30 UNITS/0.3 ML VIAL SC SCH ×2 (09:56→21:41)
[2022-12-04 13:00] VITALS: BMI 25.9
[2022-12-04] MEDS: HumaLOG 300 UNITS/3 ML VIAL SC PRN (13:31)
[2022-12-04] MEDS: Simvastatin 5 MG TAB PER TUBE SCH (21:41)
[2022-12-05] MEDS: Metoclopramide HCl 10 MG/2 ML VIAL IVP SCH ×2 (06:07→12:08)
[2022-12-05 07:17] LABS: #Eosinphils 0.4 thou/uL (0.0-0.7); #Lymphocytes 1.4 thou/uL (1.20-3.40); #Monocytes 0.9 thou/uL (0.11-0.59); #Neutrophils 7.5 thou/uL (1.40-6.50); %Basophils 0.2 % (0.0-1.0); %Eosinophils 3.9 % (0.0-10.0); %Lymphocytes 13.6 % (21.0-51.0); %Monocytes 8.3 % (0.0-10.0); Hemoglobin 9.6 g/dL (14.0-18.0); Mean Corpuscular HGB CONC 30.1 g/dL (32.0-36.0); Mean Corpuscular Volume 86.1 fl (78.0-98.0); Mean Platelet Volume 10.7 fL (7.4-10.4); Platelet Count 176 10x3/uL (130-400); RBC Distribution Width 13.2 % (11.5-14.5); Red Blood Cell (RBC) Count 3.68 mill/uL (4.70-6.10); White Blood Cell (WBC) Count 10.1 10x3/uL (4.8-10.8)
[2022-12-05 07:35] LABS: BUN (Urea Nitrogen) 27 mg/dL (8.4-25.7); Calc. Creatinine Clearance 63 mL/min (70-130); Calcium 9.2 mg/dL (7.8-10.44); Carbon Dioxide 22 mmol/L (23-31); Chloride 110 mmol/L (98-107); Estimated GFR 55; Glucose 116 mg/dL (83-110); Potassium 4.3 mmol/L (3.5-5.1); Sodium 144 mmol/L (136-145)
[2022-12-05 08:20] LABS: Anion Gap 16 mmol/L (10-20)
[2022-12-05] MEDS: Polyethylene Glycol 3350 17 GM Packet PO SCH (08:41)
[2022-12-05] MEDS: Docusate Sodium 100 MG/10 ML UDCUP PO SCH ×2 (08:41→21:39)
[2022-12-05] MEDS: Amlodipine 10 MG TAB PER TUBE SCH (08:48)
[2022-12-05] MEDS: Isosorbide Dinitrate 20 MG TAB PO SCH ×3 (08:48→21:42)
[2022-12-05] MEDS: Pantoprazole 40 MG VIAL IVP SCH (08:49)
[2022-12-05] MEDS: Cholecalciferol 1,000 UNITS (25 MCG) TAB PER TUBE SCH (08:49)
[2022-12-05] MEDS: Aspirin Chewable 81 MG TAB PER TUBE SCH (08:49)
[2022-12-05] MEDS: Insulin Glargine 30 UNITS/0.3 ML VIAL SC SCH ×2 (08:51→21:42)
[2022-12-05] MEDS: Heparin 5,000 UNITS/ML VIAL SC SCH ×2 (08:52→21:42)
[2022-12-05] MEDS: hydrALAZINE 25 MG TAB PO SCH ×3 (12:08→21:42)
[2022-12-05] MEDS ORDERED: Losartan 25 MG TAB PER TUBE SCH (13:30)
[2022-12-05] MEDS: Metoclopramide 10 MG/10 ML UDCUP PO SCH ×2 (15:01→21:42)
[2022-12-05] MEDS: Simvastatin 5 MG TAB PER TUBE SCH (21:42)
[2022-12-06 07:04] LABS: #Eosinphils 0.3 thou/uL (0.0-0.7); #Lymphocytes 1.2 thou/uL (1.20-3.40); #Monocytes 0.8 thou/uL (0.11-0.59); #Neutrophils 7.5 thou/uL (1.40-6.50); %Basophils 0.2 % (0.0-1.0); %Eosinophils 3.4 % (0.0-10.0); %Lymphocytes 12.4 % (21.0-51.0); %Monocytes 7.9 % (0.0-10.0); %Neutrophils 76.2 % (42.0-75.0); Hemoglobin 9.5 g/dL (14.0-18.0); Mean Corpuscular HGB CONC 32.3 g/dL (32.0-36.0); Mean Corpuscular Hemoglobin 28.1 pg (27.0-31.0); Mean Platelet Volume 8.5 fL (7.4-10.4); Platelet Count 338 10x3/uL (130-400); RBC Distribution Width 13.1 % (11.5-14.5); Red Blood Cell (RBC) Count 3.37 mill/uL (4.70-6.10); White Blood Cell (WBC) Count 9.8 10x3/uL (4.8-10.8)
[2022-12-06 07:17] LABS: Anion Gap 13 mmol/L (10-20); BUN (Urea Nitrogen) 20 mg/dL (8.4-25.7); Calc. Creatinine Clearance 68 mL/min (70-130); Calcium 9.1 mg/dL (7.8-10.44); Carbon Dioxide 27 mmol/L (23-31); Chloride 108 mmol/L (98-107); Estimated GFR 60; Glucose 97 mg/dL (83-110); Potassium 3.9 mmol/L (3.5-5.1); Sodium 144 mmol/L (136-145)
[2022-12-06] MEDS: Isosorbide Dinitrate 20 MG TAB PO SCH ×3 (08:14→20:42)
[2022-12-06] MEDS: Pantoprazole 40 MG VIAL IVP SCH (08:14)
[2022-12-06] MEDS: Aspirin Chewable 81 MG TAB PER TUBE SCH (08:14)
[2022-12-06] MEDS: Amlodipine 10 MG TAB PER TUBE SCH (08:14)
[2022-12-06] MEDS: Cholecalciferol 1,000 UNITS (25 MCG) TAB PER TUBE SCH (08:14)
[2022-12-06] MEDS: Polyethylene Glycol 3350 17 GM Packet PO SCH (08:15)
[2022-12-06] MEDS: Insulin Glargine 30 UNITS/0.3 ML VIAL SC SCH ×2 (08:15→20:45)
[2022-12-06] MEDS: hydrALAZINE 25 MG TAB PO SCH ×3 (08:15→20:41)
[2022-12-06] MEDS: Heparin 5,000 UNITS/ML VIAL SC SCH ×2 (08:15→20:42)
[2022-12-06] MEDS: Metoclopramide 10 MG/10 ML UDCUP PO SCH ×3 (08:15→20:41)
[2022-12-06] MEDS: Docusate Sodium 100 MG/10 ML UDCUP PO SCH (08:15)
[2022-12-06] MEDS ORDERED: Guaifenesin DM 100-10/5 ML UDCUP PO PRN (08:23)
[2022-12-06] MEDS ORDERED: Docusate 100 MG CAP PO PRN (08:24)
[2022-12-06] MEDS ORDERED: Losartan 25 MG TAB PO SCH (09:15)
[2022-12-06] MEDS: Aspirin Chewable 81 MG TAB PO SCH (10:15)
[2022-12-06] MEDS: Cholecalciferol 1,000 UNITS (25 MCG) TAB PO SCH (10:22)
[2022-12-06] MEDS: Scopolamine 1.5 mg/72 hour Patch TD SCH (10:23)
[2022-12-06] MEDS: Amlodipine 10 MG TAB PO SCH (10:23)
[2022-12-06] MEDS: Simvastatin 5 MG TAB PER TUBE SCH (20:41)
[2022-12-07 07:53] LABS: Anion Gap 12 mmol/L (10-20); BUN (Urea Nitrogen) 19 mg/dL (8.4-25.7); Calc. Creatinine Clearance 69 mL/min (70-130); Calcium 9.4 mg/dL (7.8-10.44); Carbon Dioxide 28 mmol/L (23-31); Chloride 109 mmol/L (98-107); Estimated GFR 62; Glucose 90 mg/dL (83-110); Potassium 4.1 mmol/L (3.5-5.1); Sodium 145 mmol/L (136-145)
[2022-12-07] MEDS: Heparin 5,000 UNITS/ML VIAL SC SCH (07:55)
[2022-12-07] MEDS: Metoclopramide 10 MG/10 ML UDCUP PO SCH (07:55)
[2022-12-07] MEDS: Cholecalciferol 1,000 UNITS (25 MCG) TAB PO SCH (07:56)
[2022-12-07] MEDS: hydrALAZINE 25 MG TAB PO SCH (07:56)
[2022-12-07] MEDS: Insulin Glargine 30 UNITS/0.3 ML VIAL SC SCH (07:56)
[2022-12-07] MEDS: Isosorbide Dinitrate 20 MG TAB PO SCH (07:57)
[2022-12-07] MEDS: Aspirin Chewable 81 MG TAB PO SCH (07:57)
[2022-12-07] MEDS: Amlodipine 10 MG TAB PO SCH ×2 (07:57→07:58)
[2022-12-07] MEDS: Pantoprazole 40 MG VIAL IVP SCH (07:59)
[2022-12-07] MEDS: Polyethylene Glycol 3350 17 GM Packet PO SCH (08:30)
[2022-12-07] MEDS ORDERED: Losartan 25 MG TAB PO SCH (09:00)
[2022-12-07 09:19] VITALS: BP 161/66; TEMP 97.8
[2022-12-14] MEDS ORDERED: cloNIDine 0.1mg/24 Hour PATCH TD SCH (09:00)
== END 2022-12-07 12:28 | disposition swing bed (61) | DRG 853 ==
LOC: ERS 03:07 → ERHOLD 05:19 → 2SW 10:04 → 2NO 11-24 17:53 → CCU 11-24 22:31 → IMCU/EMU 11-25 17:35 → CCU 11-27 11:23 → T4-A 12-02 10:24
PROVIDERS: ADMIT Student in an Organized Health Care Education/Training Program; ATTEND Internal Medicine
PROC: 4A133R1 Monitoring of Arterial Saturation, Peripheral, Percutaneous Approach (ICD-10-PCS; principal; 2022-11-22)
PROC: 3E03329 Introduction of Other Anti-infective into Peripheral Vein, Percutaneous Approach (ICD-10-PCS; 2022-11-22)
PROC: 0W9930Z Drainage of Right Pleural Cavity with Drainage Device, Percutaneous Approach (ICD-10-PCS; 2022-11-25)
PROC: 0BCK4ZZ Extirpation of Matter from Right Lung, Percutaneous Endoscopic Approach (ICD-10-PCS; 2022-11-27)
PROC: 0BJ08ZZ Inspection of Tracheobronchial Tree, Via Natural or Artificial Opening Endoscopic (ICD-10-PCS; 2022-11-27)
PROC: 0BH17EZ Insertion of Endotracheal Airway into Trachea, Via Natural or Artificial Opening (ICD-10-PCS; 2022-11-27)
PROC: 5A1955Z Respiratory Ventilation, Greater than 96 Consecutive Hours (ICD-10-PCS; 2022-11-27)
DX: A41.9 Sepsis, unspecified organism (principal); G93.41 Metabolic encephalopathy; J69.0 Pneumonitis due to inhalation of food and vomit; J86.9 Pyothorax without fistula; J96.01 Acute respiratory failure with hypoxia; J18.9 Pneumonia, unspecified organism; N17.9 Acute kidney failure, unspecified; I69.351 Hemiplegia and hemiparesis following cerebral infarction affecting right dominant side; E87.20 Acidosis, unspecified; J90 Pleural effusion, not elsewhere classified; I47.20 Ventricular tachycardia, unspecified; E87.0 Hyperosmolality and hypernatremia; J98.11 Atelectasis; D63.1 Anemia in chronic kidney disease; Z66 Do not resuscitate; I69.322 Dysarthria following cerebral infarction; I69.391 Dysphagia following cerebral infarction; R13.10 Dysphagia, unspecified; E78.5 Hyperlipidemia, unspecified; F12.10 Cannabis abuse, uncomplicated; F14.10 Cocaine abuse, uncomplicated; Z20.822 Contact with and (suspected) exposure to COVID-19; E11.22 Type 2 diabetes mellitus with diabetic chronic kidney disease; E11.65 Type 2 diabetes mellitus with hyperglycemia; I95.9 Hypotension, unspecified; K59.00 Constipation, unspecified; N18.30 Chronic kidney disease, stage 3 unspecified; R91.8 Other nonspecific abnormal finding of lung field; I12.9 Hypertensive chronic kidney disease with stage 1 through stage 4 chronic kidney disease, or unspecified chronic kidney disease; N18.9 Chronic kidney disease, unspecified; Z79.84 Long term (current) use of oral hypoglycemic drugs; Z79.82 Long term (current) use of aspirin; Z79.899 Other long term (current) drug therapy; Z93.1 Gastrostomy status; I69.392 Facial weakness following cerebral infarction; Z71.51 Drug abuse counseling and surveillance of drug abuser
CPT/HCPCS: 36415; 36416; 36600; 71045; 71250; 74018; 76770; 80048; 80053; 80069; 80306; 81003; 82043; 82150; 82550; 82553; 82805; 82945; 83605; 83615; 83735; 83880; 84145; 84157; 84300; 84484; 84540; 85025; 85060; 86140; 87040; 87070; 87116; 87205; 87206; 88112; 88305; 89051; 93005; 93306; 94002; 94003; 94660; 95816; 95819; 95957; 96365; 96367; C9113; J0692; J1644; J1815; J1940; J2001; J2020; J2060; J2185; J2405; J2543; J2704; J2765; J2997; J3010; J3370-JW; J3490; J7042; P9047; U0002